=== PATIENT | male | born 1970 | race Caucasian/White ===

== ENCOUNTER 2024-03-19 18:44 | Emergency (ER) | payer MEDICARE ==
[2024-03-19 18:57] VITALS: TEMP 98.5
--- NOTE | 2024-03-19 19:31 | ERPHSYRPT ---
- History of Present Illness Source: patient, family Patient Subjective Stated Complaint: C/O SOB for the past week. States he went to [facility] ER a few days ago and was diagnosed with anxiety and sent home. Triage Nursing Assessment: Patient ambulated back to ER. He is hyperventilating; noted anxiety. Lungs clear. No cough. Skin tone normal. Patient is alert and oriented; hard of hearing. SMITH WNL. Severity of Dyspnea-Current: moderate Hx Tetanus, Diphtheria Vaccination/Date Given: Yes Hx Influenza Vaccination/Date Given: Yes Immunizations Up to Date: Yes <AMY BRIONES - Last Filed: 03/19/24 19:27> <SHAGGY SNOWDEN - Last Filed: 03/19/24 21:49> - History of Present Illness Time Seen by Provider: 03/19/24 19:27 Physician History: Patient is a anxious hyperventilating white male 53 years old who has multiple complaints but primarily is concerned about his breathing and the tongue tingling and numbness that go with that in his fingers and around his mouth etc. he is also concerned that he has constipation since she has not had a bowel movement for 4 daysHe was seen at [facility] and discharged without much in the way of treatment. (AMY BRIONES) Allergies/Adverse Reactions: No Known Drug Allergies Allergy (Verified 03/19/24 18:45) Home Medications: Aspirin EC 325 mg [Ecotrin 325 MG] 325 mg PO DAILY 03/19/24 [History] Atorvastatin Calcium [Lipitor] 20 mg PO HS 03/19/24 [History] Cholecalciferol (Vitamin D3) [Vitamin D3] 50 mcg PO DAILY 03/19/24 [History] Famotidine 40 mg PO BID 03/19/24 [History] Meloxicam [Mobic] 15 mg PO DAILY 03/19/24 [History] lisinopriL [Zestril] 40 mg PO DAILY 03/19/24 [History] Travel Risk - International Travel Have you traveled outside of the country in past 3 weeks: No - Emerging Infectious Disease Are you exhibiting symptoms associated with any current EIDs: No <AMY BRIONES - Last Filed: 03/19/24 19:27> - Review of Systems Constitutional: No Fever, No Chills Eyes: No Symptoms Ears, Nose, & Throat: No Symptoms Respiratory: Dyspnea, No Cough Cardiac: No Chest Pain, No Edema, No Syncope Abdominal/Gastrointestinal: Constipation, No Abdominal Pain, No Nausea, No Vomiting, No Diarrhea Genitourinary Symptoms: No Dysuria Musculoskeletal: No Back Pain, No Neck Pain Skin: No Rash Neurological: Parasthesia, No Dizziness, No Focal Weakness, No Sensory Changes Psychological: No Symptoms Endocrine: No Symptoms All Other Systems: Reviewed and Negative <ANGELAMY LOPEZ Last Filed: 03/19/24 19:27> - Past Medical History Pertinent Past Medical History: Yes Cardiac History: High Cholesterol, Hypertension Respiratory History: Asthma, COPD Musculoskeletal History: Arthritis GI Medical History: GERD, Polyps Psycho-Social History: Anxiety - Past Surgical History Past Surgical History: Yes Other Surgical History: colonoscopy with polyp removal, sinus surgery - Social History Smoking Status: Never smoker Exposure to second hand smoke: No Drug Use: none - Social Determinants of Health Will the patient participate in the screening: Declined to provide <AMY BRIONES Last Filed: 03/19/24 19:27> - Physical Exam General Appearance: mild distress, alert Eye Exam: PERRL/EOMI Neck Exam: normal inspection, supple Respiratory Exam: other (Hyperventilating) Cardiovascular/Chest Exam: normal heart sounds, regular rate/rhythm Abdominal/Gastrointestinal Exam: soft, No tenderness, No distention, No mass Extremity Exam: non-tender, normal range of motion, normal inspection, no calf tenderness, no pedal edema Neurologic Exam: alert, oriented x 3, cooperative, buyer II-XII nml as tested, sensation nml, No motor deficits Skin Exam: normal color, warm, No dry SpO2 Interpretation: normal SpO2: 100 O2 Delivery: Room Air <AMY BRIONES Filed: 03/19/24 19:27> - Nursing Vital Signs Nursing Vital Signs: Initial Vital Signs Temperature 98.5 F 03/19/24 18:46 Pulse Rate 84 03/19/24 18:46 Respiratory Rate 24 03/19/24 18:46 Blood Pressure 121/88 03/19/24 18:46 O2 Sat by Pulse Oximetry 100 03/19/24 18:46 Pain Scale Pain Intensity 0 - Course Nursing assessment & vital signs reviewed: Yes <ANSELMOAMY Last Filed: 03/19/24 19:27> - Radiology Exams Chest X-ray Interpretation: Interpreted by me, Reviewed by me, Negative, No Pneumonia, No Pneumothorax, Nml Alignment, No Infiltrates, Nml Mediastinum Abdomen X-ray Interpretation: Interpreted by me, Reviewed by me, Negative, Other (Negative for any free air, negative for abnormal air-fluid levels and negative for any signs of abnormal calcifications) <SHAGGY SNOWDEN - Last Filed: 03/19/24 21:49> Ordered Tests: Active Orders 24 hr Category Date Time Status CHEST 1 VIEW (PORTABLE) Stat Exams 03/19/24 19:24 Taken KUB Stat Exams 03/19/24 19:26 Taken CBC W DIFF Stat Lab 03/19/24 19:20 Completed CMP Stat Lab 03/19/24 19:20 Completed Lactic Acid Stat Lab 03/19/24 19:24 Completed VBG [VENOUS BLOOD GAS] Stat Lab 03/19/24 21:18 Completed Medication Summary Discontinued Medications Generic Name Dose Route Start Last Admin Trade Name Freq PRN Reason Stop Dose Admin Lorazepam 1 mg 03/19/24 19:26 03/19/24 19:49 Lorazepam 2 Mg/1 Ml 2 Mg Vial IV 03/19/24 19:27 1 mg STAT ONE Administration Lorazepam Confirm 03/19/24 19:36 Lorazepam 2 Mg/1 Ml 2 Mg Vial Administered 03/19/24 19:37 Dose 2 mg .ROUTE .K-MED ONE Lab/Rad Data: Laboratory Result Diagrams 03/19/24 19:20 03/19/24 19:20 Laboratory Results 03/19/24 03/19/24 03/19/24 Range/Units 21:18 19:24 19:20 WBC (4.0-10.5) x10^3/uL RBC (4.1-5.6) x10^6/uL Hgb (12.5-18.0) g/dL Hct (42-50) % MCV (78-100) fL MCH (26-32) pg MCHC (32-36) g/dL RDW (11.5-14.0) % Plt Count (150-450) x10^3/uL MPV (7.5-11.0) fL Gran % (36.0-66.0) % Immature Gran % (Auto) (0.00-0.4) % Nucleat RBC Rel Count (0.00-0.1) % Eos # (Auto) (0-0.5) x10^3/uL Immature Gran # (Auto) (0.00-0.03) x10^3u/L Absolute Lymphs (auto) (1.0-4.6) x10^3/uL Absolute Monos (auto) (0.0-1.3) x10^3/uL Absolute Nucleated RBC (0.00-0.01) x10^3u/L Lymphocytes % (24.0-44.0) % Monocytes % (0.0-12.0) % Eosinophils % (0.00-5.0) % Basophils % (0.0-0.4) % Absolute Granulocytes (1.4-6.9) x10^3/uL Basophils # (0-0.4) x10^3/uL pO2/FiO2 Ratio 21.0 % VBG pH 7.40 (7.32-7.42) VBG pCO2 at Pat Temp 34 L (42-55) mm/Hg VBG pO2 at Pat Temp 59 H (25-40) mm/Hg VBG HCO3 21.1 L (22-28) meq/L VBG O2 Sat (Abiodun) 87.7 L (95-100) VBG Base Excess -3.0 L (-2.0-2.0) VBG Hemoglobin 13.7 VBG Carboxyhemoglobin 1.0 (0.0-6.9) % T HGB POC Potassium 3.6 (3.5-5.1) Sodium 136 (135-145) mmol/L Potassium 3.8 (3.5-5.1) mmol/L Chloride 109 H (98-107) mmol/L Carbon Dioxide 14 L* (22-30) mmol/L Anion Gap 16.2 H (5-15) MEQ/L BUN 14 (9-20) mg/dL Creatinine 1.23 (0.66-1.25) mg/dL Estimated GFR 69.8 ML/MIN Glucose 101 (74-106) mg/dL Lactic Acid 1.6 (0.4-2.0) Calcium 9.9 (8.4-10.2) mg/dL Total Bilirubin 0.60 (0.2-1.3) mg/dL AST 33 (17-59) U/L ALT 25 (0-50) U/L Alkaline Phosphatase 101 (38-126) U/L Serum Total Protein 7.9 (6.3-8.2) g/dL Albumin 4.6 (3.5-5.0) g/dL 03/19/24 Range/Units 19:20 WBC 9.4 (4.0-10.5) x10^3/uL RBC 4.94 (4.1-5.6) x10^6/uL Hgb 14.1 (12.5-18.0) g/dL Hct 40.7 L (42-50) % MCV 82.4 (78-100) fL MCH 28.5 (26-32) pg MCHC 34.6 (32-36) g/dL RDW 13.1 (11.5-14.0) % Plt Count 290 (150-450) x10^3/uL MPV 12.0 H (7.5-11.0) fL Gran % 64.4 (36.0-66.0) % Immature Gran % (Auto) 0.3 (0.00-0.4) % Nucleat RBC Rel Count 0.0 (0.00-0.1) % Eos # (Auto) 0.01 (0-0.5) x10^3/uL Immature Gran # (Auto) 0.03 (0.00-0.03) x10^3u/L Absolute Lymphs (auto) 2.50 (1.0-4.6) x10^3/uL Absolute Monos (auto) 0.76 (0.0-1.3) x10^3/uL Absolute Nucleated RBC 0.00 (0.00-0.01) x10^3u/L Lymphocytes % 26.5 (24.0-44.0) % Monocytes % 8.1 (0.0-12.0) % Eosinophils % 0.1 (0.00-5.0) % Basophils % 0.6 (0.0-0.4) % Absolute Granulocytes 6.08 (1.4-6.9) x10^3/uL Basophils # 0.06 (0-0.4) x10^3/uL pO2/FiO2 Ratio % VBG pH (7.32-7.42) VBG pCO2 at Pat Temp (42-55) mm/Hg VBG pO2 at Pat Temp (25-40) mm/Hg VBG HCO3 (22-28) meq/L VBG O2 Sat (Abiodun) (95-100) VBG Base Excess (-2.0-2.0) VBG Hemoglobin VBG Carboxyhemoglobin (0.0-6.9) % T HGB POC Potassium (3.5-5.1) Sodium (135-145) mmol/L Potassium (3.5-5.1) mmol/L Chloride (98-107) mmol/L Carbon Dioxide (22-30) mmol/L Anion Gap (5-15) MEQ/L BUN (9-20) mg/dL Creatinine (0.66-1.25) mg/dL Estimated GFR ML/MIN Glucose (74-106) mg/dL Lactic Acid (0.4-2.0) Calcium (8.4-10.2) mg/dL Total Bilirubin (0.2-1.3) mg/dL AST (17-59) U/L ALT (0-50) U/L Alkaline Phosphatase (38-126) U/L Serum Total Protein (6.3-8.2) g/dL Albumin (3.5-5.0) g/dL - Progress Progress: improved Air Movement: good Antibiotics given: No Counseled pt/family regarding: lab results, diagnosis, need for follow-up, rad results <SHAGGY SNOWDEN - Last Filed: 03/19/24 21:49> - Progress Progress Note: 03/19/24 21:43 Patient feels much better than when he came in after taking the Ativan and has no symptoms of shortness of breath this time, denies any abdominal pain, and would like something go home with to help with his constipation (SHAGGY SNOWDEN AARON) - Departure Departure Disposition: Home Critical Care Time: No <AMY BRIONES - Last Filed: 03/19/24 19:27> - Departure Departure Disposition: Home Critical Care Time: No <SHAGGY SNOWDEN - Last Filed: 03/19/24 21:49> - Departure Clinical Impression: Hyperventilation Constipation Qualifiers: Constipation type: unspecified constipation type Qualified Code(s): K59.00 - Constipation, unspecified Condition: Good Referrals: EVELIA WALLACE MD [Primary Care Provider] - Follow up/PCP as directed Additional Instructions: Return back to the nearest emergency room for any worsening shortness of breath, new abdominal pain, new uncontrollable vomiting, new back pain, new coughing up blood, new vomiting blood, new black or red stools, new blood in urine, new fever or any other concerning signs or symptoms that were not present at today's emergency room visit for immediate reevaluation in the nearest emergency department Prescriptions: Polyethylene Glycol 3350 17 gm [Miralax Powder 17GM PACKET] 17 gm PO DAILY PRN #7 packet PRN Reason: Constipation
[2024-03-19 19:33] LABS: Absolute Neutrophil Ct (ANC) 6.08 x10^3/uL (1.4-6.9); BASOPHIL % 0.6 % (0.0-0.4); Basophil (Absolute #) 0.06 x10^3/uL (0-0.4); Eosinophil % 0.1 % (0.00-5.0); Eosinophil (Absolute #) 0.01 x10^3/uL (0-0.5); Hematocrit 40.7 % (42-50); Hemoglobin 14.1 g/dL (12.5-18.0); IMMATURE GRAN # 0.03 x10^3u/L (0.00-0.03); IMMATURE GRAN % 0.3 % (0.00-0.4); Lymphocytes % 26.5 % (24.0-44.0); Mean Cell Volume 82.4 fL (78-100); Mean Corpuscular Hemoglobin 28.5 pg (26-32); Mean Corpuscular Hgb Concent. 34.6 g/dL (32-36); Monocyte (Absolute #) 0.76 x10^3/uL (0.0-1.3); Monocytes % 8.1 % (0.0-12.0); Neutrophil % 64.4 % (36.0-66.0); Platelet Count 290 x10^3/uL (150-450); Red Blood Count 4.94 x10^6/uL (4.1-5.6); Red Cell Distribution Width 13.1 % (11.5-14.0); White Blood Count 9.4 x10^3/uL (4.0-10.5)
[2024-03-19] MEDS ORDERED: Ativan 2 MG/1 ML VIAL ONE (19:36)
[2024-03-19 19:48] LABS: ALBUMIN 4.6 g/dL (3.5-5.0); ANION GAP 16.2 MEQ/L (5-15); BILIRUBIN,TOTAL 0.6 mg/dL (0.2-1.3); Calcium 9.9 mg/dL (8.4-10.2); Creatinine 1 1.23 mg/dL (0.66-1.25); EST GLOMERULAR FILTRATION RATE 69.8 ML/MIN; Potassium 3.8 mmol/L (3.5-5.1); Total Protein 7.9 g/dL (6.3-8.2)
[2024-03-19] MEDS: Ativan 2 MG/1 ML VIAL IV ONE (19:49)
[2024-03-19 21:10] VITALS: BP 114/84; PULSE 64; RESP 19; O2SAT 97
[2024-03-19 21:35] LABS: VBG HCO3- 21.1 meq/L (22-28); VBG HEMOGLOBIN 13.7; VBG O2 SATURATION 87.7 (95-100); VBG POTASSIUM 3.6 (3.5-5.1); VBG pH 7.4 (7.32-7.42)
--- NOTE | 2024-03-20 08:59 | XRAY ---
Indication: Short of breath. Comparison: None Portable chest hyperinflated and clear with incidental tiny left mid lung calcified granuloma. Heart not enlarged. Bony thorax intact.
--- NOTE | 2024-03-20 08:59 | XRAY ---
Indication: Abnormal stools. Comparison: None KUB nonacute and nonobstructed with mild scattered colonic fecal debris. Solid organs unremarkable. Osseous structures intact.
== END 2024-03-19 21:59 | disposition home or self-care (01) ==
LOC: ED 18:44
DX: R06.4 Hyperventilation (principal); K59.00 Constipation, unspecified; R20.2 Paresthesia of skin; E78.5 Hyperlipidemia, unspecified; I10 Essential (primary) hypertension; Z79.899 Other long term (current) drug therapy
CPT/HCPCS: 36000; 36415; 71045; 74018; 80053; 82805; 83605; 85025; 96374; 99284; J2060